=== PATIENT | male | born 1945 | race Two or more races ===

== ENCOUNTER 2022-11-14 12:45 | Inpatient (IN) | payer OTHER ==
[~2022-11-14] VITALS: Ht 172.7 cm; Wt 53.5 kg
[2022-11-14] MEDS ORDERED: IV NS 0.9% 1,000 ML BAG IV ONE (13:00)
--- NOTE | 2022-11-14 13:00 | NUR ---
BIBRA PA FOR HEMATURIA FOR 1 MONTH WORSE TODAY. PLACED IN BED, AWAKE- NON VERBAL, WITH TRACH. TUBE ATTACHED TO VENTILATOR WITH SETTING AC/VC FIO2- 30%, VT- 500, RATE- 16, PEEP- 5 SATURATING AT 100%.
[2022-11-14] MEDS ORDERED: POLY17PO4 GT (13:09)
[2022-11-14] MEDS ORDERED: ZINC56.713 TP (13:09)
[2022-11-14] MEDS ORDERED: AMLO-212 GT (13:09)
[2022-11-14] MEDS ORDERED: FAMO20TA8 GT (13:09)
[2022-11-14] MEDS ORDERED: ACET-2605 GT (13:09)
[2022-11-14] MEDS ORDERED: INSU100V7 SQ (13:09)
[2022-11-14] MEDS ORDERED: IPRA4AER INH (13:09)
[2022-11-14] MEDS ORDERED: INSU100V39 SQ (13:09)
[2022-11-14] MEDS ORDERED: MAGN400O6 GT (13:09)
[2022-11-14] MEDS ORDERED: NA P133E RC (13:09)
[2022-11-14] MEDS ORDERED: BISA10SU11 RC (13:09)
[2022-11-14] MEDS ORDERED: LABE100T5 GT (13:09)
[2022-11-14] MEDS ORDERED: VITA1TAB56 GT (13:09)
[2022-11-14] MEDS ORDERED: ACET-868 GT (13:09)
[2022-11-14] MEDS ORDERED: POLY15DR40 EACHEYE (13:09)
[2022-11-14] MEDS ORDERED: IPRA4AER IH (13:09)
[2022-11-14] MEDS ORDERED: FERR300L GT (13:09)
[2022-11-14] MEDS ORDERED: SENN-261 GT (13:09)
[2022-11-14] MEDS ORDERED: CHLO473M2 MM (13:09)
[2022-11-14] MEDS ORDERED: OXYC5TAB3 GT (13:09)
--- NOTE | 2022-11-14 13:10 | NUR ---
EMERGENCY DEPT TECH AT BEDSIDE
[2022-11-14 13:11] LABS: BASOPHILS # (AUTO) 0.1 K/uL (0.0-0.2); BASOPHILS % (AUTO) 0.5 % (0.0-2.0); EOSINOPHILS % (AUTO) 6.5 % (0.0-6.0); HEMATOCRIT 30 % (39-51); HEMOGLOBIN 9.5 g/dL (13.5-17.5); MEAN CORPUSCULAR HGB CONC 32 g/dl (31.0-36.0); MEAN CORPUSCULAR VOLUME 91 fL (80-96); MONOCYTES % (AUTO) 6.6 % (2.0-12.0); NEUTROPHILS # (AUTO) 11.2 K/uL (1.8-8.9); NEUTROPHILS % (AUTO) 73.4 % (43.0-81.0); PLATELET COUNT (AUTO) 277 K/uL (150-450); RED BLOOD CELL COUNT(AUTO) 3.28 MIL/uL (4.5-6.0); WHITE BLOOD COUNT (AUTO) 15.3 K/uL (4.3-11.0)
[2022-11-14] MEDS ORDERED: MEROPENEM 1,000 MG in IV NS 0.9% 100 ML IV ONE (13:30)
--- NOTE | 2022-11-14 13:44 | NUR ---
URINE SAMPLE SENT TO LAB
[2022-11-14 13:58] LABS: ALBUMIN 2.8 g/dL (3.4-5.0); BILIRUBIN,DIRECT 0.1 mg/dL (0.0-0.2); BILIRUBIN,TOTAL 0.2 mg/dL (0.2-1.0); CALCIUM, SERUM 8.9 mg/dL (8.5-10.1); CREATININE 0.9 mg/dL (0.6-1.3); POTASSIUM 4.3 mmol/L (3.5-5.1); TOTAL PROTEIN, SERUM 6.9 g/dL (6.4-8.2)
[2022-11-14 14:29] LABS: BILIRUBIN,URINE NEGATIVE (NEGATIVE); COLOR,URINE YELLOW (YELLOW); LEUKOCYTE ESTERASE ,URINE 3+ (NEGATIVE); NITRITE, URINE NEGATIVE (NEGATIVE); PH,URINE 7.5 (5.0-8.0); PROTEIN,URINE NEGATIVE (NEGATIVE); UGLUCOSE NEGATIVE (NEGATIVE); UROBILINOGEN,URINE 0.2 EU/dL (0.2)
[2022-11-14 14:52] LABS: BACTERIA,URINE Moderate /HPF (None Seen); SQUAMOUS EPITHELIAL CELL,UR None Seen /HPF (None Seen)
--- NOTE | 2022-11-14 14:55 | NUR ---
SWAB FOR COVID19 SENT TO LAB
--- NOTE | 2022-11-14 16:24 | NUR ---
bed given 113-1
--- NOTE | 2022-11-14 16:24 | NUR ---
Teri jovel in [facility] - 11/14/22 at 1624 by BELKYS bed given 1131
--- NOTE | 2022-11-14 17:43 | NUR ---
REPORT GIVEN TO NILDA PERERA ROOM 113 FOR PHANI
--- NOTE | 2022-11-14 18:15 | NUR ---
PATIENT TRANSFERED AND AMITTED PER ACLS PROTOCOL
--- NOTE | 2022-11-14 18:16 | NUR ---
RT Received pt in ER with settings as noted. No SOB noted. No new orders per MD Mora back up trach and ambu bag at bedside. Will continue to monitor
[2022-11-14] MEDS ORDERED: ONDANSETRON HCL/PF 4 MG/2 ML VIAL IVP PRN (18:30)
[2022-11-14] MEDS ORDERED: ACETAMINOPHEN 325 MG TABLET PO PRN (18:30)
[2022-11-14] MEDS ORDERED: BISACODYL SUPP (10 MG) 10 MG/SUPP.RECT SUPP.RECT RC PRN (18:30)
[2022-11-14] MEDS ORDERED: NA PHOS,M-B/NA PHOS,DI-BA 1 EA ENEMA RC PRN (18:30)
[2022-11-14] MEDS ORDERED: Z GUARD REMEDY 4 OZ OINT TP PRN (18:30)
[2022-11-14] MEDS ORDERED: oxyCODONE IR immediate release 5 MG PO PRN (18:30)
[2022-11-14] MEDS ORDERED: MAGNESIUM HYDROXIDE 30 ML UDC GT PRN (18:30)
[2022-11-14] MEDS ORDERED: POLYVINYL ALCOHOL 15 ML BOTTLE EACHEYE PRN (18:30)
[2022-11-14] MEDS ORDERED: DEXTROSE 50%-WATER 50 ML DISP.SYRIN IV PRN (18:30)
--- NOTE | 2022-11-14 18:44 | NUR ---
RN NOTE RECEIVED PATIENT ADMITTED TO ROOM 113-1
[2022-11-14 18:49] VITALS: BP 104/73
--- NOTE | 2022-11-14 18:56 | NUR ---
RN NOTE VITAL SIGNS TAKEN, AND WOUND PHOTOGRAPHED, WILL ENDORSE TO REHABILITATION SUPERVISOR FOR PHANI.
[2022-11-14] MEDS ORDERED: VANCOMYCIN 1.5 GM in IV D5W 500ml IV ONE (19:00)
[2022-11-14] MEDS: IV NS 0.9% 1,000 ML IV PRN (19:00)
--- NOTE | 2022-11-14 19:30 | NUR ---
RN NOTE RECEIVED PT IN BED, AWAKE, RESPONSIVE TO NAME ONLY, NONVERBAL, PT OPENS EYES ONLY. CURRENT VENT SETTINGS WELL TOLERATED. NO ACUTE RESP DISTRESS NOTED. ATTACHED TO EXTERNAL CARE ASST CURRENTLY READING SR AT THIS TIME. PT RECEIVING NS AT 100ML/HR ON RFA #22G, WELL LING, NO S/SX OF INFX/INFILTRATION NOTED. FC IN PLACED, PATENT, DRAINING CLEAR YELLOW URINE BY GRAVITY, NO HEMATURIA NOTED. HOB ELEVATED. SAFETY PRECAUTION IMPLEMENTED. WILL CONT POC. FAMILY AT BEDSIDE.
[2022-11-14 20:00] VITALS: BP 111/56
[2022-11-14] MEDS: CEFEPIME 2 GM in IV D5W 100 ML IV SCH (20:16)
[2022-11-14] MEDS ORDERED: ENOXAPARIN SODIUM 40 MG/0.4 ML DISP.SYRIN SQ SCH (21:00)
[2022-11-14] MEDS: ZINC OXIDE 56.7 GM TUBE TP SCH (22:00)
--- NOTE | 2022-11-14 23:30 | NUR ---
RN NOTE RESUME GTF PER MD CHRISS HESS. CURRENT FEEDING ORDER TO BE VERIFIED BY RD. RD CONSULT ORDER IN PLACED.
[2022-11-15] VITALS: BP 121/56
[2022-11-15] MEDS: BLOOD SUGAR DIAGNOSTIC 1 EACH STRIP IN SCH ×5 (00:48→23:55)
[2022-11-15] MEDS: INSULIN GLARGINE, 100 UNIT/ML CARTRIDGE SQ SCH ×2 (00:48→22:00)
[2022-11-15] MEDS: INSULIN REGULAR, HUMAN 100 UNIT/ML 3 ML VIAL SQ PRN ×2 (00:49→23:55)
[2022-11-15 04:00] VITALS: BP 101/64
--- NOTE | 2022-11-15 06:00 | NUR ---
RN NOTE BS 55MG/DL, WILL ADMINISTER PRN DEXTROSE ORDERED, PT IN STABLE CONDITION, REMAINS AT BASELINE MENTAL STATUS.
[2022-11-15 06:02] LABS: BASOPHILS % (AUTO) 0.2 % (0.0-2.0); EOSINOPHILS % (AUTO) 3.6 % (0.0-6.0); HEMATOCRIT 30 % (39-51); HEMOGLOBIN 9.5 g/dL (13.5-17.5); LYMPHOCYTES # (AUTO) 1.1 K/uL (0.8-4.8); LYMPHOCYTES % (AUTO) 6.3 % (20.0-44.0); MEAN CORPUSCULAR HGB CONC 32 g/dl (31.0-36.0); MEAN CORPUSCULAR VOLUME 93 fL (80-96); MONOCYTES # (AUTO) 0.6 K/uL (0.1-1.30); MONOCYTES % (AUTO) 3.3 % (2.0-12.0); NEUTROPHILS # (AUTO) 15.4 K/uL (1.8-8.9); NEUTROPHILS % (AUTO) 86.6 % (43.0-81.0); PLATELET COUNT (AUTO) 263 K/uL (150-450); WHITE BLOOD COUNT (AUTO) 17.8 K/uL (4.3-11.0)
[2022-11-15 06:46] LABS: CARBON DIOXIDE 27 mmol/L (21-32); CHLORIDE 103 mmol/L (98-107); GLUCOSE 60 mg/dL (74-106); POTASSIUM 3.6 mmol/L (3.5-5.1); SODIUM SERUM 137 mmol/L (136-145)
[2022-11-15 06:47] LABS: CREATININE 0.7 mg/dL (0.6-1.3); MAGNESIUM 2.1 mg/dL (1.8-2.4); PHOSPHORUS 3.4 mg/dL (2.5-4.9); UREA NITROGEN, BLOOD 27 mg/dL (7-18)
[2022-11-15 06:55] LABS: CHOLESTEROL 83 mg/dL (<200); TRIGLYCERIDES 81 mg/dL (30-150)
[2022-11-15 06:56] LABS: HDL CHOLESTEROL 32 mg/dL (40-60); LDL 54 mg/dL (0-99); THYROID STIMULATING HORMONE 1.246 uIU/mL (0.358-3.74)
[2022-11-15] MEDS ORDERED: VANCOMYCIN HCL 0.75 GM in IV D5W 250 ML IV SCH (07:00)
--- NOTE | 2022-11-15 07:20 | NUR ---
RN NOTE PT REMAINS AT BASELINE MENTAL STATUS, RESPONSIVE TO TACTILE STIMULI, NONVERBAL, OPENS EYES ONLY. IV DEXTROSE GIVEN ORDERED. WILL ENDORSE TO AM SHIFT FOR PHANI.
--- NOTE | 2022-11-15 07:23 | NUR ---
RN OPENING NOTE RECEIVED PT ALERT AND ORIENTED X1. NONVERBAL. PT IS ON TELE MONITOR SINUS RHYTM. PT ON MECHANICAL VENT TOLERATING SETTINGS WELL. PT HAS MANN CATHETHER YELLOW COLOR DRAINING TO GRAVITY. PT HAS R HAND MITTEN RESTRAINT. NO SKIN OR CIRCULATION ISSUES NOTED AT THIS TIME. PT ON GTUBE FEEDING. NO RESIDUAL VOLUME NOTED AT THIS TIME. PT HAS R FOREARM 22 GUAGE. IV PATENT, INTACT AND FLUSHING WELL. ALL SAFETY MEASURES IN PLACE. CALL LIGHT WITHIN REACH. BED LOCKED AT LOWEST POSITION. SIDE RAILS UP X2. BED ALARM ON.
--- NOTE | 2022-11-15 07:55 | NUR ---
bs 55, dextrose given. current bs 165
[2022-11-15 08:00] VITALS: BP 119/60
--- NOTE | 2022-11-15 08:53 | NUR ---
WOUND CARE CONSULT: PT PRESENTS WITH SACRAL INTACT DEEP TISSUE INJURY WITH SCARRING, BILATERAL HEEL SCARS AND SCAR TO LEFT SHOULDER, ALL PRESENT ON ADMISSION. THERE IS A DRY LESION TO LEFT GROIN FOLD, PRESENT ON ADMISSION. RECOMMENDATIONS MADE FOR SKIN PROTECTION. DISCUSSED WITH NURSING STAFF. IN AGREEMENT WITH PLAN OF CARE. PT IS ON [facility] BED. Addendum: 11/15/22 at 0854 by NEHEMIAS DYER WNDNU Amended: Links added.
[2022-11-15] MEDS: IV NS 0.9% 1,000 ML IV PRN (09:20)
[2022-11-15] MEDS: FAMOTIDINE (20 MG) 20 MG TABLET GT SCH (09:26)
[2022-11-15] MEDS: POLYETHYLENE GLYCOL 3350 17 GM POWD.PACK GT SCH (09:26)
[2022-11-15] MEDS: CHLORHEXIDINE GLUCONATE 15 ML UDC MM SCH ×2 (09:27→17:01)
[2022-11-15] MEDS: SENNOSIDES 8.6 MG TABLET GT SCH ×2 (09:27→17:01)
[2022-11-15] MEDS ORDERED: GLUCERNA 1.2 1,000 ML BOTTLE NG PRN (09:30)
[2022-11-15 12:00] VITALS: BP 114/67
[2022-11-15] MEDS: ZINC OXIDE 56.7 GM TUBE TP SCH ×2 (15:08→20:47)
[2022-11-15 16:00] VITALS: BP 124/69
[2022-11-15] MEDS: ACETAMINOPHEN 325 MG TABLET PO PRN (17:01)
--- NOTE | 2022-11-15 17:01 | NUR ---
RN NOTE NOTIFIED DR. LOVE THAT PT IS VERY AGITATED AND ON VENT/TRACH AND IF OKAY TO ORDER PRN ATIVAN. DR. LOVE OKAY TO ORDER ATIVAN 1 MG Q6 PRN FOR AGITATION. ORDERS NOTED AND CARRIED OUT. VITAL SIGNS STABLE.
--- NOTE | 2022-11-15 17:25 | NUR ---
RN NOTE NOTIIFED DR. BANERJEE THAT PT VERY AGIGTATED ON VENT TRACH AND IF PRN ATIVAN CAN BE GIVEN Q 6HOURS. OKAY TO GIVE
[2022-11-15] MEDS: FERROUS SULFATE UDC 300 MG/5 ML UDC GT SCH (17:26)
[2022-11-15] MEDS: LORAZEPAM INJ 2 MG/ML VIAL IV PRN (17:27)
[2022-11-15] MEDS ORDERED: IV D5/ 0.9% NACL 1,000 ML IV ONE (18:30)
[2022-11-15] MEDS ORDERED: VANCOMYCIN 1 GM in IV D5W 250ml IV SCH (19:00)
--- NOTE | 2022-11-15 19:29 | NUR ---
RN CLOSING NOTE PT ALERT AND ORIENTED X1. NONVERBAL. PT IS ON TELE MONITOR SINUS RHYTM. PT ON MECHANICAL VENT TOLERATING SETTINGS WELL. PT HAS MANN CATHETER YELLOW COLOR DRAINING TO GRAVITY. PT HAS R HAND MITTEN RESTRAINT. NO SKIN OR CIRCULATION ISSUES NOTED AT THIS TIME. PT ON GTUBE FEEDING. NO RESIDUAL VOLUME NOTED AT THIS TIME. PT HAS R FOREARM 22 GAUGE. IV PATENT, INTACT AND FLUSHING WELL. ALL SAFETY MEASURES IN PLACE. CALL LIGHT WITHIN REACH. BED LOCKED AT LOWEST POSITION. SIDE RAILS UP X2. BED ALARM ON. ENDORSED TO ART GLASS SETTER RN FOR CONUTITY OF CARE
[2022-11-15] MEDS: CEFEPIME 2 GM in IV D5W 100 ML IV SCH (19:37)
[2022-11-15 20:00] VITALS: BP 101/53
[2022-11-15] MEDS ORDERED: IV D5W 1,000 ML IV PRN (20:00)
--- NOTE | 2022-11-15 20:00 | NUR ---
RN NOTE RECEIVED PT IN BED, AWAKE, RESPONSIVE TO NAME, NONVERBAL. CURRENT VENT SETTINGS WELL TOLERATED. NO ACUTE RESP DISTRESS NOTED. ATTACHED TO EXTERNAL RADON INSPECTOR CURRENTLY READING SR AT THIS TIME. CURRENTLY INFUSING D5NS AT 100ML/HR ON LFA #20G, WELL LING, NO S/SX OF INFX/INFILTRATION NOTED. GT IN PLACED, PATENT, AND SECURED. GTF GLUCERNA RUNNING AT 70ML/HR, WELL LING, NO RESIDUAL NOTED. FC IN PLACED, PATENT, DRAINING CLEAR YELLOW URINE BY GRAVITY, NO HEMATURIA NOTED. HOB ELEVATED. SAFETY PRECAUTION IMPLEMENTED. WILL CONT POC.
[2022-11-15] MEDS: IV D5/ 0.9% NACL 1,000 ML IV PRN (20:47)
[2022-11-16] VITALS: BP 136/74
[2022-11-16] MEDS ORDERED: IV NS 0.9% 1,000 ML IV PRN
--- NOTE | 2022-11-16 | NUR ---
RN NOTE GTF TURNED OFF, GT CLAMPED ORDERED. PT ON NPO FOR PRE-OP SURGERY (CYSTOSCOPY, POSSIBLE BIOPSY) IN AM. CURRENTLY INFUSING D5NS ON LFA IV AT 100ML/HR ORDERED. WILL CHECK BLOOD SUGAR ORDERED.
[2022-11-16 04:00] VITALS: BP 131/78
[2022-11-16 06:02] LABS: BILIRUBIN,URINE NEGATIVE (NEGATIVE); COLOR,URINE YELLOW (YELLOW); LEUKOCYTE ESTERASE ,URINE TRACE (NEGATIVE); NITRITE, URINE NEGATIVE (NEGATIVE); PROTEIN,URINE NEGATIVE (NEGATIVE); UGLUCOSE NEGATIVE (NEGATIVE); UROBILINOGEN,URINE 0.2 EU/dL (0.2)
[2022-11-16] MEDS: BLOOD SUGAR DIAGNOSTIC 1 EACH STRIP IN SCH ×3 (06:06→17:15)
[2022-11-16] MEDS: INSULIN REGULAR, HUMAN 100 UNIT/ML 3 ML VIAL SQ PRN ×2 (06:07→17:32)
--- NOTE | 2022-11-16 06:40 | NUR ---
RN NOTE PT REMAINS IN STABLE CONDITION. NO SIGNIFICANT CHANGES NOTED. ALL DUE MEDICATIONS GIVEN ORDERED. GT REMAINS CLAMPED ORDERED FOR PREOP. NO S/SX OF HYPOGLYCEMIA. BS WNL. FC IN PLACED, DRAINING CLEAR YELLOW URINE BY GRAVITY, NO HEMATURIA NOTED. KEPT PT CLEAN, DRY, AND COMFORTABLE. SAFETY AND ASPIRATION PRECAUTION IMPLEMENTED AT ALL TIMES. WILL ENDORSE TO AM SHIFT NURSE FOR PHANI.
[2022-11-16 07:01] LABS: BASOPHILS # (AUTO) 0.1 K/uL (0.0-0.2); BASOPHILS % (AUTO) 0.7 % (0.0-2.0); EOSINOPHILS % (AUTO) 9.4 % (0.0-6.0); HEMATOCRIT 32 % (39-51); LYMPHOCYTES # (AUTO) 1.4 K/uL (0.8-4.8); LYMPHOCYTES % (AUTO) 14.1 % (20.0-44.0); MEAN CORPUSCULAR HGB CONC 32 g/dl (31.0-36.0); MEAN CORPUSCULAR VOLUME 94 fL (80-96); MONOCYTES # (AUTO) 0.7 K/uL (0.1-1.30); MONOCYTES % (AUTO) 7.6 % (2.0-12.0); NEUTROPHILS # (AUTO) 6.7 K/uL (1.8-8.9); NEUTROPHILS % (AUTO) 68.2 % (43.0-81.0); PLATELET COUNT (AUTO) 265 K/uL (150-450); RED BLOOD CELL COUNT(AUTO) 3.38 MIL/uL (4.5-6.0); WHITE BLOOD COUNT (AUTO) 9.8 K/uL (4.3-11.0)
[2022-11-16 07:09] LABS: BACTERIA,URINE None seen /HPF (None Seen); RBC,URINE NONE SEEN /HPF (0-2); SQUAMOUS EPITHELIAL CELL,UR None Seen /HPF (None Seen); WBC,URINE 0-3 /HPF (0-3)
[2022-11-16 07:27] LABS: ALBUMIN 2.5 g/dL (3.4-5.0); BILIRUBIN,TOTAL 0.2 mg/dL (0.2-1.0); CALCIUM, SERUM 8.8 mg/dL (8.5-10.1); CREATININE 0.7 mg/dL (0.6-1.3); MAGNESIUM 2.2 mg/dL (1.8-2.4); PHOSPHORUS 2.6 mg/dL (2.5-4.9); POTASSIUM 3.7 mmol/L (3.5-5.1); TOTAL PROTEIN, SERUM 6.6 g/dL (6.4-8.2)
--- NOTE | 2022-11-16 07:30 | NUR ---
[employer] FIRM ACCOUNTS MANAGER AM NOTE RECEIVED PT ALERT AND ORIENTED X1. NONVERBAL. WITH PORTEX 7 TRACH TO MECHANICAL VENT WITH SETTING: AC 16 TV 500 FIO2 30 PEEP 5. RESPIRATION UNLABORED. SR HR 85 ON MONITOR. NO SIGNS OF PAIN. IV ACCESS LFA G20 WITH D5NS AT 75 ML/HR INFUSING WELL. SITE CLEAR. SEE NURSING FLOWSHEET FOR SKIN ISSUES. PT ON GTUBE FEEDING. GLUCERNA 70ML/HR. CLAMPED AT THIS TIME. NO RESIDUAL VOLUME NOTED AT THIS TIME. NPO FOR SCHEDULED CYSTOSCOPY AT 1400 TODAY. CONSENT SIGNED. ALL SAFETY MEASURES IN PLACE. CALL LIGHT WITHIN REACH. BED LOCKED AT LOWEST POSITION. SIDE RAILS UP X2. BED ALARM ON. WILL CONT TO MONITOR.
[2022-11-16 08:00] VITALS: BP 134/61
[2022-11-16] MEDS: SENNOSIDES 8.6 MG TABLET GT SCH ×2 (09:00→16:15)
[2022-11-16] MEDS: FAMOTIDINE (20 MG) 20 MG TABLET GT SCH (09:00)
[2022-11-16] MEDS: ZINC OXIDE 56.7 GM TUBE TP SCH ×2 (09:00→21:28)
[2022-11-16] MEDS: POLYETHYLENE GLYCOL 3350 17 GM POWD.PACK GT SCH (09:00)
--- NOTE | 2022-11-16 09:30 | NUR ---
RN NOTES DUE MEDS GIVEN
[2022-11-16] MEDS: CHLORHEXIDINE GLUCONATE 15 ML UDC MM SCH ×2 (09:38→16:15)
[2022-11-16] MEDS: IV D5/ 0.9% NACL 1,000 ML IV PRN (11:52)
[2022-11-16 12:00] VITALS: BP 143/78
--- NOTE | 2022-11-16 13:11 | NUR ---
RN NOTES REPORT GIVEN TO LEANN VENTURA FOR PHANI
--- NOTE | 2022-11-16 13:25 | NUR ---
RECEIVED REPORT FROM OSMAN PERERA FOR PHANI.
--- NOTE | 2022-11-16 13:50 | NUR ---
PATIENT WENT TO OR FOR CYSTOSCOPY.
--- NOTE | 2022-11-16 14:30 | NUR ---
PATIENT BACK FROM CYSTOSCOPY, PER VINCENT PERERA, CYSTOSCOPY WAS DONE AND BIOPSY, NEW FC WAS PLACED FR 16, NOTED WITH LIGHT PINKISH URINE. PATIENT IS EASILY AWAKEN WITH TOUCH. NOT IN DISTRESS, ON MECHANICAL VENTILATOR. T 97.1 HR 73 BP 124/63 02 SAT 100%. BLOOD SUGAR IS 121.PER DR. BAUMAN, NO NEW ORDERS, RESUME PREVIOUS ORDER. Addendum: 11/16/22 at 1515 by LEANN JOSHUA RN CORRECTION: NO BIOPSY WAS DONE.
--- NOTE | 2022-11-16 14:45 | NUR ---
PATIENT IS RESPONSIVE WITH TOUCH, NO SOB, VS T 97.7 RR 16 BP 127/70 HR 82 02 SAT 100, ON MECHANICAL VENT, NOT IN ANY DISTRESS.
--- NOTE | 2022-11-16 15:00 | NUR ---
PATIENT IS ALERT AND RESPONSIVE, VS T 98.0 RR 16 HR 88 BP 131/70 02 SAT 100 ON MECHANICAL VENTILATOR.
--- NOTE | 2022-11-16 15:30 | NUR ---
PATIENT IS ALERT AND RESPONSIVE, FAMILY AT THE BEDSIDE, NOT IN ANY DISTRESS, VS 98.0 HR 82 RR 16 BP 141/70 02 SAT 100% ON MECHANICAL VENTILATOR.
[2022-11-16 16:00] VITALS: BP 135/70
[2022-11-16] MEDS: FERROUS SULFATE UDC 300 MG/5 ML UDC GT SCH (17:06)
--- NOTE | 2022-11-16 18:05 | NUR ---
SILVICULTURIST CLOSING NOTE RECEIVED PT ALERT AND ORIENTED X1. NONVERBAL. WITH PORTEX 7 TRACH TO MECHANICAL VENT WITH SETTING: AC 16 TV 500 FIO2 30 PEEP 5. RESPIRATION UNLABORED. SR HR 84 ON MONITOR. NO SIGNS OF PAIN. IV ACCESS LFA G20 NOTED PATENT AND INTACT, FLUSHES WELL, WITH D5NS AT 75 ML/HR INFUSING WELL. SITE CLEAR. SEE NURSING FLOWSHEET FOR SKIN ISSUES. PT ON GTUBE FEEDING. GT PATENT AND INTACT ON GLUCERNA 70ML/HR,TOLERATING WELL, NO N/V/D NOTED, NO RESIDUAL VOLUME NOTED AT THIS TIME. MANN CATH NOTED PATENT AND INTACT WITH HEMATURIA NOTED S/P CYSTOSCOPY. ALL SAFETY MEASURES IN PLACE. CALL LIGHT WITHIN REACH. BED LOCKED AT LOWEST POSITION. SIDE RAILS UP X2. BED ALARM ON. WILL ENDORSE TO NIGHT NURSE FOR PHANI.
[2022-11-16] MEDS: CEFEPIME 2 GM in IV D5W 100 ML IV SCH (18:16)
--- NOTE | 2022-11-16 19:30 | NUR ---
BILINGUAL ADMINISTRATIVE ASSISTANT OPENING NOTE RECEIVED PATIENT IN BED; AWAKE, A/O X 1. NONVERBAL. ON TRACH TO [facility] VENT WITH SETTINGS FOLLOWS: PORTEX 7, AC 16, TV 500, FIO2 30, PEEP 5. BREATHING EVEN AND NONLABORED. NO S/S OF PAIN OR DISCOMFORT NOTED AT THIS TIME. ON TELE MONITORING; SR HR-85 BPM. WITH IV ACCESS ON LFA 20g; PATENT AND INTACT INFUSING WITH D5NS 1L RUNNING @ 75 ML/HR; FLUSHES WELL. WITH RIGHT HAND MITTEN IN PLACE; SKIN AND CIRCULATION CHECKED; WNL. ON G-TUBE FEEDING: GLUCERNA 1.2 RUNNING @ 70ML/HR. NO RESIDUAL NOTED. WITH MANN CATH IN PLACE DRAINING BY GRAVITY TO RED COLORED URINE OUTPUT. SAFETY PRECAUTIONS IMPLEMENTED: HEAD OF BED ELEVATED, CALL LIGHT WITHIN EASY REACH, SIDE RAILS UP X 3, BED IN LOWEST LOCKED POSITION. WILL CONTINUE PLAN OF CARE.
[2022-11-16 20:00] VITALS: BP 144/73
[2022-11-16] MEDS: INSULIN GLARGINE, 100 UNIT/ML CARTRIDGE SQ SCH (22:52)
[2022-11-17] VITALS: BP 138/72
[2022-11-17] MEDS: BLOOD SUGAR DIAGNOSTIC 1 EACH STRIP IN SCH ×5 (00:13→23:26)
[2022-11-17] MEDS: INSULIN REGULAR, HUMAN 100 UNIT/ML 3 ML VIAL SQ PRN ×4 (00:33→23:36)
[2022-11-17 04:00] VITALS: BP 125/68
[2022-11-17] MEDS: GLUCERNA 1.2 1,000 ML BOTTLE NG PRN (05:08)
--- NOTE | 2022-11-17 06:45 | NUR ---
VACUUM TECHNICIAN CLOSING NOTE PATIENT IN BED; AWAKE, A/O X 1. NONVERBAL. ON TRACH TO [facility] VENT WITH SETTINGS FOLLOWS: PORTEX 7, AC 16, TV 500, FIO2 30, PEEP 5. IN NO ACUTE DISTRESS. ON TELE MONITORING SR HR-97 BPM. WITH IV ACCESS ON LFA 20g; PATENT, INTACT AND SALINE LOCKED. WITH RIGHT SOFT WRIST RESTRAINT IN PLACE; SKIN AND CIRCULATION CHECKED; WNL. STILL ON G-TUBE FEEDING: GLUCERNA 1.2 RUNNING @ 70ML/HR. NO RESIDUAL NOTED. WITH MANN CATH IN PLACE DRAINING BY GRAVITY TO RED COLORED URINE OUTPUT. SAFETY PRECAUTIONS MAINTAINED: HEAD OF BED ELEVATED, CALL LIGHT WITHIN EASY REACH, SIDE RAILS UP X 3, BED IN LOWEST LOCKED POSITION. ENDORSED TO MORNING SHIFT FOR PHANI.
[2022-11-17 07:08] LABS: BASOPHILS % (AUTO) 0.1 % (0.0-2.0); EOSINOPHILS % (AUTO) 3.7 % (0.0-6.0); HEMATOCRIT 29 % (39-51); HEMOGLOBIN 9.2 g/dL (13.5-17.5); LYMPHOCYTES # (AUTO) 1.9 K/uL (0.8-4.8); LYMPHOCYTES % (AUTO) 10.6 % (20.0-44.0); MEAN CORPUSCULAR HGB CONC 32 g/dl (31.0-36.0); MEAN CORPUSCULAR VOLUME 92 fL (80-96); MONOCYTES # (AUTO) 1.5 K/uL (0.1-1.30); MONOCYTES % (AUTO) 8.3 % (2.0-12.0); NEUTROPHILS % (AUTO) 77.3 % (43.0-81.0); PLATELET COUNT (AUTO) 281 K/uL (150-450); RED BLOOD CELL COUNT(AUTO) 3.16 MIL/uL (4.5-6.0); WHITE BLOOD COUNT (AUTO) 18.1 K/uL (4.3-11.0)
--- NOTE | 2022-11-17 07:30 | NUR ---
REPROGRAPHICS TECHNICIAN AM NOTE RECEIVED PT ALERT AND ORIENTED X1. NONVERBAL. WITH PORTEX 7 TRACH TO MECHANICAL VENT WITH SETTING: AC 16 TV 500 FIO2 30 PEEP 5. RESPIRATION UNLABORED. St HR 106 ON MONITOR. NO SIGNS OF PAIN. IV ACCESS LFA G20. SALINE LOCK. FLUSHES WELL. SITE CLEAR. SEE NURSING FLOWSHEET FOR SKIN ISSUES. PT ON GTUBE FEEDING. GLUCERNA 70ML/HR. CHECKED FOR PLACEMENT. NO RESIDUAL VOLUME NOTED AT THIS TIME. WELL TOLERATED. HOB UP 30 DEG AT ALL TIMES. ALL SAFETY MEASURES IN PLACE. CALL LIGHT WITHIN REACH. BED LOCKED AT LOWEST POSITION. SIDE RAILS UP X2. BED ALARM ON. WILL CONT TO MONITOR. PATIENT S/P CYTOSCOPY YESTERDAY C/O DR. PATEL. WITH MANN CATHETER. NOTED TO HAVE GROSS HEMATURIA.
[2022-11-17 08:00] VITALS: BP 150/100
[2022-11-17 08:00] LABS: ALBUMIN 2.5 g/dL (3.4-5.0); BILIRUBIN,TOTAL 0.2 mg/dL (0.2-1.0); CALCIUM, SERUM 8.8 mg/dL (8.5-10.1); CREATININE 0.6 mg/dL (0.6-1.3); MAGNESIUM 2.3 mg/dL (1.8-2.4); PHOSPHORUS 2.7 mg/dL (2.5-4.9); POTASSIUM 4.2 mmol/L (3.5-5.1)
[2022-11-17] MEDS: FAMOTIDINE (20 MG) 20 MG TABLET GT SCH (09:23)
[2022-11-17] MEDS: ACETAMINOPHEN 325 MG TABLET PO PRN (09:23)
[2022-11-17] MEDS: SENNOSIDES 8.6 MG TABLET GT SCH ×2 (09:23→17:04)
[2022-11-17] MEDS: POLYETHYLENE GLYCOL 3350 17 GM POWD.PACK GT SCH (09:23)
[2022-11-17] MEDS: CHLORHEXIDINE GLUCONATE 15 ML UDC MM SCH ×2 (09:23→17:04)
[2022-11-17] MEDS: ZINC OXIDE 56.7 GM TUBE TP SCH ×2 (09:24→20:54)
--- NOTE | 2022-11-17 09:30 | NUR ---
RN NOTES DUE MEDS GIVEN
[2022-11-17 12:00] VITALS: BP 148/100
[2022-11-17] MEDS: ENOXAPARIN SODIUM 40 MG/0.4 ML DISP.SYRIN SQ SCH (13:00)
--- NOTE | 2022-11-17 13:16 | NUR ---
RN NOTES PER DR. LOVE, OK TO HOLD LOVENOX DOSE FOR NOW. ASK UROLOGIST IF OK TO CONTINUE. PT WITH GROSS HEMATURIA
[2022-11-17 16:00] VITALS: BP 160/84
[2022-11-17] MEDS: FERROUS SULFATE UDC 300 MG/5 ML UDC GT SCH (17:05)
[2022-11-17] MEDS ORDERED: IV NS 0.9% 250 ML IV PRN (17:30)
[2022-11-17] MEDS: CEFEPIME 2 GM in IV D5W 100 ML IV SCH (18:01)
--- NOTE | 2022-11-17 18:30 | NUR ---
PRESS TENDER LONG GOODS CLOSING NOTE PT IN BED, ALERT AND ORIENTED X1. NONVERBAL. WITH PORTEX 7 TRACH TO MECHANICAL VENT WITH SETTING: AC 16 TV 500 FIO2 30 PEEP 5. RESPIRATION UNLABORED. SR HR 87 ON MONITOR. NO SIGNS OF PAIN. IV ACCESS LFA G20 NOTED PATENT AND INTACT, FLUSHES WELL, WITH NS KVO. SITE CLEAR. PT ON GTUBE FEEDING. GT PATENT AND INTACT ON GLUCERNA 70ML/HR,TOLERATING WELL, NO N/V/D NOTED, NO RESIDUAL VOLUME NOTED AT THIS TIME. MANN CATH NOTED PATENT AND INTACT WITH HEMATURIA NOTED S/P CYSTOSCOPY. TOTAL OUTPUT OF 600 ML. ALL SAFETY MEASURES IN PLACE. CALL LIGHT WITHIN REACH. BED LOCKED AT LOWEST POSITION. SIDE RAILS UP X2. BED ALARM ON. ALL NEEDS MET AT THIS TIME. TURNED AND REPOSITION Q 2 HOURS. PM CARE DONE EARLIER. WILL ENDORSE TO NIGHT NURSE FOR PHANI.
--- NOTE | 2022-11-17 19:15 | NUR ---
TELE1 RN NOTES RECEIVED LAYING ON BED,A/O X1,MUMBLED,ON TRACH TO VENT,SETTINGS TOLERATED WELL.WITH GT BFEEDING OF GLUCERNA AT 70ML/HR RATE,TOLERATED WELL,NO RESIDUAL VOLUME NOTED.HOB ELEVATED FOR ASPIRATION PRECAUTION.WITH MANN CATH IN PLACE DRAINS BLOOD TINGED URINE.INCONTINENT OF BOWEL.WITH SALINE LOCK LFA INTACT AND PATENT SACRAL REDNESS NOTED ON BOTH HEELS AND LEFT SHOULDER.WILL REPOSITION PER PROTOCOL FOR SKIN MANAGEMENT.FULL CODE . WILL CONTINUE TO MONITOR STATUS.
[2022-11-17 20:00] VITALS: BP 138/91
[2022-11-17] MEDS: INSULIN GLARGINE, 100 UNIT/ML CARTRIDGE SQ SCH (21:43)
--- NOTE | 2022-11-17 21:45 | NUR ---
TYPE CASTING MACHINE OPERATOR NOTE ACCU-CHECK BLOOD SUGAR CHECK 163,L[facility] 18 UNIT GIVEN SQ SCHEDULED.
--- NOTE | 2022-11-17 23:42 | NUR ---
FUNERAL SERVICE APPRENTICE NOTES ACCU-CHECK BLOOD SUGAR CHECK 160MG/DL,COVERED WITH HUMULIN R 2 UNITS PER SLIDING SCALE.GT FEEDING IN PROGRESS
[2022-11-18] VITALS: BP 139/76
[2022-11-18 04:00] VITALS: BP 148/69
--- NOTE | 2022-11-18 05:15 | NUR ---
CRIBBING SETTER NOTES ACCU-CHECK BLOOD SUGAR CHECK 123MG/DL,NO INSULIN COVERAGE,GT FEEDING PROGRESS
[2022-11-18] MEDS: BLOOD SUGAR DIAGNOSTIC 1 EACH STRIP IN SCH ×2 (05:19→11:23)
[2022-11-18] MEDS: GLUCERNA 1.2 1,000 ML BOTTLE NG PRN (05:27)
--- NOTE | 2022-11-18 06:16 | NUR ---
WRIST CLOSER NOTES ON BED A/O X1,BREATHING NONLABORED,VENT SETTINGS TOLERATED WELL.GT FEEDING IN PROGRESS,WITH X1 BOWEL MOVEMENT.RESTRAINTS IN USED ORDERED, WITH GOOD BLOD CIRCULATION ON BOTH HANDS.IN NO ACUTE DISTRESS.WILL ENDORSE TO DAY NURSE FOR PHANI.
--- NOTE | 2022-11-18 07:05 | NUR ---
RN OPENING NOTE- PT IN BED, A/O X1 -ON TRACH TO VENT SETTINGS TOLERATED WELL. WITH GT FEEDING OF GLUCERNA AT 70ML/HR RATE,TOLERATED WELL, NO RESIDUAL VOLUME NOTED. HOB ELEVATED FOR ASPIRATION PRECAUTION. MANN CATH IN PLACE DRAINING BLOOD -TINGED URINE. INCONTINENT OF BOWEL. SALINE LOCK LFA INTACT AND PATENT SACRAL REDNESS NOTED ON BOTH HEELS AND LEFT SHOULDER. MONITOR / ASSIST
[2022-11-18 07:43] LABS: BASOPHILS # (AUTO) 0.1 K/uL (0.0-0.2); BASOPHILS % (AUTO) 0.5 % (0.0-2.0); EOSINOPHILS % (AUTO) 6.3 % (0.0-6.0); HEMATOCRIT 31 % (39-51); HEMOGLOBIN 9.8 g/dL (13.5-17.5); LYMPHOCYTES % (AUTO) 12.1 % (20.0-44.0); MEAN CORPUSCULAR HGB CONC 32 g/dl (31.0-36.0); MEAN CORPUSCULAR VOLUME 92 fL (80-96); MONOCYTES # (AUTO) 1.2 K/uL (0.1-1.30); MONOCYTES % (AUTO) 7.5 % (2.0-12.0); NEUTROPHILS # (AUTO) 11.9 K/uL (1.8-8.9); NEUTROPHILS % (AUTO) 73.6 % (43.0-81.0); PLATELET COUNT (AUTO) 359 K/uL (150-450); RED BLOOD CELL COUNT(AUTO) 3.38 MIL/uL (4.5-6.0); WHITE BLOOD COUNT (AUTO) 16.2 K/uL (4.3-11.0)
[2022-11-18 08:00] VITALS: BP 148/69
[2022-11-18 08:05] LABS: ALANINE AMINOTRANSFERASE 27 U/L (12-78); ALBUMIN 2.7 g/dL (3.4-5.0); ALKALINE PHOSPHATASE 94 U/L (46-116); BILIRUBIN,TOTAL 0.2 mg/dL (0.2-1.0); CALCIUM, SERUM 9.2 mg/dL (8.5-10.1); CARBON DIOXIDE 28 mmol/L (21-32); CHLORIDE 106 mmol/L (98-107); CREATININE 0.7 mg/dL (0.6-1.3); GLUCOSE 124 mg/dL (74-106); PHOSPHORUS 2.6 mg/dL (2.5-4.9); POTASSIUM 4.1 mmol/L (3.5-5.1); SODIUM SERUM 141 mmol/L (136-145); TOTAL PROTEIN, SERUM 7.3 g/dL (6.4-8.2); UREA NITROGEN, BLOOD 20 mg/dL (7-18)
[2022-11-18 08:13] LABS: ASPARTATE AMINOTRANSFERASE 17 U/L (15-37)
[2022-11-18] MEDS: POLYETHYLENE GLYCOL 3350 17 GM POWD.PACK GT SCH (09:16)
[2022-11-18] MEDS: ENOXAPARIN SODIUM 40 MG/0.4 ML DISP.SYRIN SQ SCH (09:17)
[2022-11-18] MEDS: SENNOSIDES 8.6 MG TABLET GT SCH ×2 (09:18→16:49)
[2022-11-18] MEDS: FAMOTIDINE (20 MG) 20 MG TABLET GT SCH (09:18)
[2022-11-18] MEDS: CHLORHEXIDINE GLUCONATE 15 ML UDC MM SCH ×2 (09:18→16:49)
[2022-11-18] MEDS: ZINC OXIDE 56.7 GM TUBE TP SCH (09:20)
[2022-11-18] MEDS: INSULIN REGULAR, HUMAN 100 UNIT/ML 3 ML VIAL SQ PRN (11:30)
[2022-11-18 12:00] VITALS: BP 126/65
[2022-11-18] MEDS: LORAZEPAM INJ 2 MG/ML VIAL IV PRN (12:45)
--- NOTE | 2022-11-18 12:46 | NUR ---
RN NOTE- REMOVED PT FROM WRIST RESTRAINTS. PT BECAME AGITATED, PULLING AT TRACH AND TUBING. ATIVAN 1 MG IVP ADMINISTERED
[2022-11-18 16:00] VITALS: BP 134/69
[2022-11-18] MEDS ORDERED: VANCOMYCIN 1.25 GM in IV D5W 250 ML IV ONE (16:00)
--- NOTE | 2022-11-18 17:56 | NUR ---
PIG IRON LOADER NOTE- PT DC AT THIS TIME TO [facility] RM 20C. REPORT PHONED INTO FACILITY. PT /MD ORDERS REVIEWED W CAREGIVERS AND UNDERSTOOD. IV SITE AND MANN CATHETER LEFT IN PLACE. ID WRISTBAND AND BLOOD BAND REMOVED. ESCORTED OFF UNIT BY AMBULANCE STAFF.
[2022-11-19] MEDS ORDERED: VANCOMYCIN 1 GM in IV D5W 250ml IV SCH (04:00)
== END 2022-11-18 19:28 | DRG 689 ==
LOC: ER 12:54 → TELE1 16:31
PROC: 5A1955Z Respiratory Ventilation, Greater than 96 Consecutive Hours (ICD-10-PCS; principal; 2022-11-14)
PROC: 0TJB8ZZ Inspection of Bladder, Via Natural or Artificial Opening Endoscopic (ICD-10-PCS; 2022-11-16)
DX: N39.0 Urinary tract infection, site not specified (principal); R53.2 Functional quadriplegia; J96.10 Chronic respiratory failure, unspecified whether with hypoxia or hypercapnia; Z99.11 Dependence on respirator [ventilator] status; R40.3 Persistent vegetative state; G93.49 Other encephalopathy; R31.0 Gross hematuria; N18.9 Chronic kidney disease, unspecified; D64.9 Anemia, unspecified; R13.10 Dysphagia, unspecified; Z20.822 Contact with and (suspected) exposure to COVID-19; Z79.4 Long term (current) use of insulin; Z86.73 Personal history of transient ischemic attack (TIA), and cerebral infarction without residual deficits; Z87.440 Personal history of urinary (tract) infections; Z93.1 Gastrostomy status; E11.22 Type 2 diabetes mellitus with diabetic chronic kidney disease; Z93.0 Tracheostomy status; I12.9 Hypertensive chronic kidney disease with stage 1 through stage 4 chronic kidney disease, or unspecified chronic kidney disease; F09 Unspecified mental disorder due to known physiological condition
CPT/HCPCS: 31720; 36415; 71045-TC; 76770-TC; 80048-TC; 80053-TC; 80061-TC; 80076-TC; 81001; 82962-TC; 83690-TC; 83735-TC; 84100-TC; 84443-TC; 85025-TC; 86850-TC; 87040-TC; 87081-TC; 87086-TC; 94002-TC; 94003-TC; 94760-TC; 94762-TC; 94799-TC; A4217; A4223; A6402; C9803; G0378; J0330; J0692; J1650; J1815; J2060; J2185; J2405; J2704; J2765; J3370; J3490; J7030; J7042; J7050; J7060